=== PATIENT | male | born 1965 | race Caucasian/White ===

== ENCOUNTER → 2016-03-27 | Outpatient (CLI) | payer BC ==
[~2016-03-27] MED LIST: FLX10 PO; NAPR-1169 PO; OXYC-57 PO; PRED20TA PO
--- NOTE | 2016-03-27 15:22 | DIAGNOSTIC IMAGING REPORT ---
RIGHT FOOT 3 VIEWS HISTORY: FOOT PAIN Right COMPARISON: None. FINDINGS: There is no fracture or dislocation. Soft tissues are unremarkable. No radiopaque foreign bodies. The Lisfranc joint is intact. IMPRESSION: No fractures. Electronically signed by: Jacuqes Denson M.D. 03/27/2016 3:20 PM Dictated Date/Time: 03/27/2016 3:15 PM
== END | disposition home or self-care (01) ==
LOC: C.RADPV 14:44
PROVIDERS: ATTEND Family Medicine
DX: M79.671 Pain in right foot (principal)

== ENCOUNTER → 2016-05-01 | Outpatient (CLI) | payer BC ==
[2016-05-01 12:51] LABS: ALT/SGPT 25 U/L (12-78); AST/SGOT 16 U/L (15-37); BLOOD UREA NITROGEN 12 mg/dl (7-18); BUN/CREATININE RATIO 10.6 (10-20); CALCIUM 8.6 mg/dl (8.5-10.1); CARBON DIOXIDE 31 mmol/L (21-32); CHLORIDE 108 mmol/L (98-107); GLUCOSE 97 mg/dl (70-99); SODIUM 144 mmol/L (136-145)
[2016-05-01 12:53] LABS: ALB/GLOB RATIO 1.2 (0.9-2); ALKALINE PHOSPHATASE 71 U/L (45-117)
== END | disposition home or self-care (01) ==
LOC: C.LABPVFM 07:26
PROVIDERS: ATTEND Family Medicine
DX: M79.673 Pain in unspecified foot (principal)

== ENCOUNTER → 2016-07-04 | Outpatient (CLI) | payer BC | END | disposition home or self-care (01) | LOC: C.LABPVFM 07:57 | PROVIDERS: ATTEND Podiatrist | DX: G62.9 Polyneuropathy, unspecified (principal) ==

== ENCOUNTER → 2016-07-29 | Outpatient (CLI) | payer BC ==
[2016-07-29 18:02] LABS: THYROXINE (T4) 5.2 mcg/dl (4.5-10.9)
[2016-07-29 18:03] LABS: T3 TOTAL 0.83 ng/ml (0.60-1.81)
== END | disposition home or self-care (01) ==
LOC: C.LABPVFM 14:57
PROVIDERS: ATTEND Neuromusculoskeletal Medicine & OMM
DX: R94.6 Abnormal results of thyroid function studies (principal)

== ENCOUNTER → 2017-02-17 | Outpatient (CLI) | payer BC ==
--- NOTE | 2017-02-17 16:25 | DIAGNOSTIC IMAGING REPORT ---
L FOOT MIN 3 VIEWS ROUTINE, R FOOT MIN 3 VIEWS ROUTINE HISTORY: 51 years-old Male Foot painM77.41 Metatarsalgia of both feetBoth acute left foot pain without reported trauma COMPARISON: Right foot radiographs 03/27/2016 TECHNIQUE: 3 views of the bilateral feet for a total of 6 images FINDINGS: LEFT: Minimal marginal spurring of the first MTP joint. Mild spurring of the plantar and Achilles insertion sites about the calcaneus. There is no acute fracture or dislocation. No opaque foreign body. RIGHT: Minimal marginal spurring of the first MTP joint. Minimal spurring at the Achilles insertion site about the calcaneus. No acute fracture, dislocation or opaque foreign body. 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 The above report was generated using voice recognition software. It may contain grammatical, syntax or spelling errors. Electronically signed by: Ke Croft M.D. 02/17/2017 4:24 PM Dictated Date/Time: 02/17/2017 4:22 PM
== END | disposition home or self-care (01) ==
LOC: C.RADPV 15:56
PROVIDERS: ATTEND Neuromusculoskeletal Medicine & OMM
DX: M77.41 Metatarsalgia, right foot (principal); M77.42 Metatarsalgia, left foot; M89.8X7 Other specified disorders of bone, ankle and foot